=== PATIENT | female | born 2000 | race Caucasian/White ===

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

== ENCOUNTER 2018-01-06 13:26 | Emergency (ER) | payer OTHER ==
--- NOTE | 2018-01-06 13:36 | EDPHY ---
H & P Stated Complaint: SUPRAPUBIC PAIN Time Seen by Provider: 01/06/18 13:34 HPI/ROS: HPI: This is a 17-year-old female who presents with Chief Complaint: Suprapubic pain. Location: Suprapubic Quality: Pain Duration: 1-2 hours prior to arrival Signs and Symptoms: no fever, no nausea, no vomiting, no hematemesis, no blood in stool, no abdominal bloating, no diarrhea, no back pain, no urinary symptoms , no vaginal bleeding/discharge, no indigestion, no chest pain, no shortness of breath Timing: Acute, constant Severity: 10 out 10 Context: Patient has a history of a right ovarian cyst, dysfunctional uterine bleeding with IUD placed April 2017 by her OBGYN presents with sudden onset of right greater than left suprapubic pain that is described as severe, constant in nature, located deep within her uterus. She reports that she was having sex with her boyfriend when the discomfort started. The pain is better when she curls up in a ball and worsens with any other movement or ambulation. Patient reports that she has had recent sexual intercourse. She denies any vaginal/anal trauma or bleeding. She has not had her menses in 2 months. Prior to that time she had extremely heavy menses. She denies any vaginal discharge or concern for STD. No fever. Denies any urinary symptoms. She has not tried anything for the pain [id number]. Modifying Factors: None Comment: ROS: see HPI Constitutional: No fever, no chills, no weight loss Eyes: No blurred vision Respiratory: No shortness of breath, no cough Cardiovascular: No chest pain, no palpitations Gastrointestinal: No nausea, no vomiting, no diarrhea, no hematemesis, no blood in stool Genitourinary: No dysuria, no blood in urine Extremities: No myalgias, no edema Neurologic: No weakness, no numbness Skin: No rashes, no petechiae Hematologic: No bruising, no bleeding MEDICAL/SURGICAL/SOCIAL HISTORY: Medical history: R OVARIAN CYST, dysfunctional uterine bleeding Surgical history: Denies Social history: Student. Family history noncontributory. CONSTITUTIONAL: awake and alert, moderate distress extremely well-appearing teenage female, accompanied by both parents and her boyfriend HEENT: Atraumatic and normocephalic, PERRL, EOMI. Nares patent; no rhinorrhea; no nasal mucosal edema. Tympanic membranes clear. Oropharynx clear, no exudate and moist pink mucosa. Airway patent. No lymphadenopathy. No meningismus. Cardiovascular: Normal S1/S2, regular rate, regular rhythm, without murmur rub or gallop. PULMONARY/CHEST: Symmetrical and nontender. Clear to auscultation bilaterally. Good air movement. No accessory muscle usage. ABDOMEN: Soft, nondistended, nontender, no rebound, no guarding, no peritoneal signs, no masses or organomegaly. No CVAT. PELVIC: normal external genitalia, normal cervix, cervical os was closed, no cervical motion tenderness, no adnexal mass, no discharge, no bleeding, IUD strings visualized. The exam was performed with a sensor operator. EXTREMITIES: 2/2 pulses, strength 5/5, no deformities, no clubbing, no cyanosis or edema. NEUROLOGICAL: no focal neuro deficits. GCS 15. SKIN: Warm and dry, no erythema. no rash. Good capillary refill. Source: Patient Exam Limitations: No limitations - Personal History LMP (Females 10-55): IUD In Place Current Tetanus Diphtheria and Acellular Pertussis (TDAP): Yes - Medical/Surgical History Hx Asthma: No Hx Chronic Respiratory Disease: No Hx Diabetes: No Hx Cardiac Disease: No Hx Renal Disease: No Hx Cirrhosis: No Hx Alcoholism: No Hx HIV/AIDS: No Hx Splenectomy or Spleen Trauma: No Other PMH: R OVARIAN CYST SOME TYPE OF BLEEDING DISORDER - Social History Smoking Status: Former smoker Constitutional: Initial Vital Signs Temperature (C) 36.7 C 01/06/18 13:29 Heart Rate 76 01/06/18 13:29 Respiratory Rate 16 01/06/18 13:29 Blood Pressure 115/77 01/06/18 13:29 O2 Sat (%) 96 01/06/18 13:29 O2 Delivery Mode Room Air Allergies/Adverse Reactions: No Known Allergies Allergy (Verified 01/06/18 13:29) Home Medications: Medication Instructions Recorded Cyclobenzaprine [Flexeril 10 MG 10 mg PO Q8 PRN #12 tab 01/06/18 (*)] MIRENA 01/06/18 Zyprexa 01/06/18 Medical Decision Making - Diagnostics Imaging Results: Imaging Impressions Pelvic/Renal Ultrasound 01/06/18 13:41 Impression: 1. Low-lying IUD. 2. Small amount of free fluid in the pelvis. 3. No ovarian torsion or definite adnexal solid or cystic masses. Findings and recommendations discussed with Emergency Department physician, Madyson Barnett at 1524 hour, 01/06/2018. Final report concurs with initial preliminary interpretation. ED Course/Re-evaluation: Urinalysis, labs, pelvic ultrasound, fluids, IV medications ordered Vital signs stable upon arrival. Doubt systemic illness. Given 1 L normal saline, IV Dilaudid 0.5 mg, IV Toradol 30 mg Differential diagnosis is IUD dislodgement, ovarian cyst 1420: Notified by nurse that Patient refused Toradol "due to bleeding concerns. " 1427: Labs reviewed and within normal limits. 1456: Urinalysis shows trace ketones but no signs of infection, no hematuria. 1520: Called by radiologist, Dr. Tinsley, who reports that no signs of ovarian torsion, IUD is low, right and left ovaries look okay, mild amount of free fluid in the pelvis. Reassessed patient who reports near complete relief of cramping and pain. Discussed obtaining limited abdominal ultrasound to rule out appendicitis. Patient is not tender in the area and is a low yield. Patient and mother politely decline further imaging which I feel is reasonable. This patient was seen under the supervision of my secondary supervising physician. I evaluated care for this patient independently. Discussed this patient with Dr. De La Vega who did not see the patient. Differential Diagnosis: Abdominal pain in a female including but not limited to ovarian cyst, pelvic inflammatory disease, ovarian torsion, urinary tract infection, and appendicitis. - Data Points Laboratory Results: Laboratory Results 01/06/18 13:51 01/06/18 13:51 01/06/18 01/06/18 01/06/18 13:51 13:51 13:51 WBC 6.87 10^3/uL 10^3/uL (3.80-9.50) RBC 5.04 10^6/uL 10^6/uL (4.18-5.33) Hgb 14.3 g/dL g/dL (12.6-16.3) Hct 41.7 % % (38.0-47.0) MCV 82.7 fL fL (81.5-99.8) MCH 28.4 pg pg (27.9-34.1) MCHC 34.3 g/dL g/dL (32.4-36.7) RDW 13.2 % % (11.5-15.2) Plt Count 277 10^3/uL 10^3/uL (150-400) MPV 9.4 fL fL (8.7-11.7) Neut % (Auto) 63.0 % % (39.3-74.2) Lymph % (Auto) 30.0 % % (15.0-45.0) Tripp % (Auto) 6.0 % % (4.5-13.0) Eos % (Auto) 0.4 % L % (0.6-7.6) Baso % (Auto) 0.3 % % (0.3-1.7) Nucleat RBC Rel Count 0.0 % % (0.0-0.2) Absolute Neuts (auto) 4.33 10^3/uL 10^3/uL (1.70-6.50) Absolute Lymphs (auto) 2.06 10^3/uL 10^3/uL (1.00-3.00) Absolute Monos (auto) 0.41 10^3/uL 10^3/uL (0.30-0.80) Absolute Eos (auto) 0.03 10^3/uL 10^3/uL (0.03-0.40) Absolute Basos (auto) 0.02 10^3/uL 10^3/uL (0.02-0.10) Absolute Nucleated RBC 0.00 10^3/uL 10^3/uL (0-0.01) Immature Gran % 0.3 % % (0.0-1.1) Immature Gran # 0.02 10^3/uL 10^3/uL (0.00-0.10) Sodium 142 mEq/L mEq/L (135-145) Potassium 4.2 mEq/L mEq/L (3.3-5.0) Chloride 105 mEq/L mEq/L (97-110) Carbon Dioxide 25 mEq/l mEq/l (22-31) Anion Gap 12 mEq/L mEq/L (8-16) BUN 10 mg/dL mg/dL (7-23) Creatinine 0.6 mg/dL mg/dL (0.6-1.0) Estimated GFR > 60 Glucose 101 mg/dL H mg/dL (70-100) Calcium 9.7 mg/dL mg/dL (8.5-10.4) Beta HCG, Qual NEGATIVE Urine Color Urine Appearance Urine pH Ur Specific [place] Urine Protein Urine Ketones Urine Blood Urine Nitrate Urine Bilirubin Urine Urobilinogen Ur Leukocyte Esterase Urine Glucose 01/06/18 13:33 WBC RBC Hgb Hct MCV MCH MCHC RDW Plt Count MPV Neut % (Auto) Lymph % (Auto) Tripp % (Auto) Eos % (Auto) Baso % (Auto) Nucleat RBC Rel Count Absolute Neuts (auto) Absolute Lymphs (auto) Absolute Monos (auto) Absolute Eos (auto) Absolute Basos (auto) Absolute Nucleated RBC Immature Gran % Immature Gran # Sodium Potassium Chloride Carbon Dioxide Anion Gap BUN Creatinine Estimated GFR Glucose Calcium Beta HCG, Qual Urine Color YELLOW Urine Appearance CLEAR Urine pH 7.0 (5.0-7.5) Ur Specific [place] 1.011 (1.002-1.030) Urine Protein NEGATIVE (NEGATIVE) Urine Ketones TRACE H (NEGATIVE) Urine Blood NEGATIVE (NEGATIVE) Urine Nitrate NEGATIVE (NEGATIVE) Urine Bilirubin NEGATIVE (NEGATIVE) Urine Urobilinogen NEGATIVE EU EU (0.2-1.0) Ur Leukocyte Esterase NEGATIVE (NEGATIVE) Urine Glucose NEGATIVE (NEGATIVE) Medications Given: Discontinued Medications Hydromorphone HCl (Dilaudid) 0.5 mg IVP EDNOW ONE Stop: 01/06/18 13:43 Last Admin: 01/06/18 14:00 Dose: 0.5 mg Sodium Chloride (Ns) 1,000 mls @ 0 mls/hr IV ONCE ONE; Wide Open PRN Reason: Protocol Stop: 01/06/18 13:42 Last Admin: 01/06/18 13:52 Dose: 1,000 mls Ketorolac Tromethamine (Toradol) 30 mg IVP EDNOW ONE Stop: 01/06/18 13:42 Last Admin: 01/06/18 14:22 Dose: Not Given Departure - Departure Disposition: Home, Routine, Self-Care Clinical Impression: Dyspareunia in female, IUD check up Condition: Good Instructions: Pelvic Rest (ED), Dyspareunia in Women (DC) Additional Instructions: Please observe pelvic rest until you are pain-free. Take Ibuprofen 600-800 mg every 6-8 hours as needed for pain. Take Flexeril 1 tab every 8 hr as needed for muscle relaxers. Please follow-up with your OBGYN provider in 1-2 weeks. Referrals: Alban Fairbanks MD [Primary Care Provider] - As per Instructions Prescriptions: Cyclobenzaprine [Flexeril 10 MG (*)] 10 mg PO Q8 PRN #12 tab PRN Reason: Spasms
[2018-01-06] MEDS ORDERED: KETOROLAC 30 MG/1 ML SDV IVP ONE (13:41)
[2018-01-06] MEDS ORDERED: NS 1,000 ML IV ONE (13:41)
[2018-01-06] MEDS ORDERED: HYDROmorphONE/DILAUDID 2 MG/ML INJ IVP ONE (13:42)
[2018-01-06] MEDS ORDERED: HYDROmorphONE/DILAUDID 1 MG/ML INJ ONE (13:47)
[2018-01-06 14:06] LABS: PLATELET COUNT 277 10^3/uL (150-400)
[2018-01-06 15:52] VITALS: BP 95/75
== END 2018-01-06 15:50 | disposition home or self-care (01) ==
DX: N94.10 Unspecified dyspareunia (principal); E86.9 Volume depletion, unspecified; Z30.431 Encounter for routine checking of intrauterine contraceptive device; Z87.891 Personal history of nicotine dependence
CPT/HCPCS: 96374; J1170; J1885